=== PATIENT | male | born 1970 | race Caucasian/White ===

== ENCOUNTER 2017-07-12 06:33 | Emergency (ER) | payer MEDICAID ==
[~2017-07-12] VITALS: Ht 162.6 cm; Wt 74.3 kg
[~2017-07-12 06:33] MED LIST: LISI20TA11 PO; LOVA20TA PO
[2017-07-12 06:39] VITALS: Ht 162.6 cm; Wt 74.3 kg
--- NOTE | 2017-07-12 09:05 | ERD ---
ER Documentation Chief Complaint Chief Complaint blister in mouth HPI 47-year-old male presents emergency department for blisters in his mouth that started 3 days ago. Denies headache, dizziness, blurry vision, neck pain, throat pain, difficulty swallowing, loss of appetite, shoulder pain, chest pain , back pain, abdomen, nausea, vomiting, constipation, diarrhea, urinary symptoms , loss of bowel bladder control, recent travel, recent long travel, recent exposure to any illness, difficulty breathing lying flat, recent antibiotic use in the last 3 months, fever, chills, numbness or tingling sensation, difficulty walking. Has past medical history of hypertension and hyperlipidemia. ROS All systems reviewed and are negative except as per history of present illness. Medications Home Meds Active Scripts Mouthwash (Protexin) 12 Ml [place], 12 ML MM TID for 7 Days, SPRAY Prov:BLAKECHUYITAKIM 07/12/17 Acetaminophen* (Tylophen*) 500 Mg Capsule, 1 CAP PO Q6H Y for PAIN AND OR ELEVATED TEMP, #20 CAP Prov:YENNYANYAKIM 07/12/17 Ibuprofen* (Motrin*) 800 Mg Tab, 800 MG PO Q8 Y for PAIN AND OR ELEVATED TEMP, # 30 TAB Prov:KIM FINNEGAN 07/12/17 Reported Medications Lisinopril* (Lisinopril*) 20 Mg Tablet, 20 MG PO DAILY, #30 TAB 12/30/15 Lovastatin* (Lovastatin*) 20 Mg Tablet, 20 MG PO HS, TAB 12/30/15 Allergies Allergies: Coded Allergies: No Known Allergy (Unverified , 12/30/15) PMhx/Soc Medical and Surgical Hx: pt denies Surgical Hx History of Surgery: No Anesthesia Reaction: No Hx Neurological Disorder: No Hx Respiratory Disorders: No Hx Cardiac Disorders: Yes (HTN) Hx Psychiatric Problems: No Hx Miscellaneous Medical Probl: Yes (high cholesterol) Hx Alcohol Use: Yes ("on the weekends") Hx Substance Use: No Hx Tobacco Use: No Smoking Status: Never smoker Physical Exam Vitals Vital Signs Date Time Temp Pulse Resp B/P Pulse Ox O2 Delivery O2 Flow Rate FiO2 07/12/17 06:39 98.8 69 18 184/98 99 Physical Exam Const: Well-appearing. Not in acute respiratory distress. Head: Atraumatic Eyes: Normal Conjunctiva ENT: Normal External Ears, Nose and Mouth. Throat: Uvula is in midline and not displaced. Tonsils are +1 bilaterally without redness and without exudates. Left side of the upper hard palate area has a lesion or sore that appears to be ulcerative but is no bleeding and no discharge. No discharge. No bleeding. Neck: Full range of motion..~ No meningismus. No signs of meningeal irritation. Resp: Clear to auscultation bilaterally Cardio: Regular rate and rhythm, no murmurs Abd: Soft, non tender, non distended. Normal bowel sounds Skin: No petechiae or rashes Back: No midline or flank tenderness Ext: No cyanosis, or edema Neur: Awake and alert Psych: Normal Mood and Affect Procedures/MDM Differential: I have low suspicion for peritonsillar abscess, severe bacterial infection, sepsis given the patient is well-appearing, nontoxic-appearing, vital signs are stable. Final diagnosis: Gingivitis, sore mouth. Prescription: Motrin. Tylenol. Follow up with PCP in the next 3-4 days. Come back here in the emergency department for any new symptoms or any worsening of symptoms. All questions and concerns are answered. Patient verbalized understanding and agreed with the plan of care. Hemodynamically stable on discharge. Departure Diagnosis: Primary Impression: Sore in mouth Condition: Stable Additional Instructions: Follow up with PCP in the next 3-4 days. Come back here in the emergency department for any new symptoms or any worsening of symptoms. All questions and concerns are answered. Patient verbalized understanding and agreed with the plan of care. KIM FINNEGAN Jul 12, 2017 09:05
[2017-07-12] MEDS ORDERED: ACET500C5 PO (09:10)
[2017-07-12] MEDS ORDERED: IBUP800T25 PO (09:10)
[2017-07-12] MEDS ORDERED: [UNRECOGNIZED DRUG - CODE] MM (09:15)
== END 2017-07-12 09:30 | disposition home or self-care (01) ==
LOC: FTE 06:33
DX: K13.79 Other lesions of oral mucosa (principal); I10 Essential (primary) hypertension
CPT/HCPCS: 99283